=== PATIENT | female | born 1990 | race Hispanic/Latino ===

== ENCOUNTER 2018-11-01 19:18 | Emergency (ER) | payer OTHER ==
[2018-11-01 19:26] VITALS: O2SAT 100
--- NOTE | 2018-11-01 19:37 | ED PDOC ---
HPI:STROKE - Time Time: 19:36 - Historian Historian: Patient - Chief Complaint Chief Complaint: Facial droop - Onset Date: 11/01/18 Time: 10:00 Onset: Hours (9) - Timing Timing: Currently Symptomatic - Location Locate right:: Face - Severity of pain Maximum severity:: Mild Pain Scale:: 0 Severity Current: Mild Pain Scale:: 0 - TPA Positive for Contraindication: Yes Reason tPA is not being Administered: [place] Palsy - Notes: Notes:: Numbness right upper lip since 10 AM today. Drooling soup earlier today. No periphearl weakness or parasthesias. No headache or dizziness. NIHSS Stroke Scale - How Severe is the Stroke Level of Consciousness: 0=Alert LOC to Questions: 0=Both comments correct LOC to commands: 0=Obeys both correctly Best Gaze: 0=Normal Visual: 0=No visual loss Facial: 1=Minor asymmetry Motor Arm - Left: 0=No drift Motor Arm - Right: 0=No drift Motor Leg - Left: 0=No drift Motor Leg - Right: 0=No drift Limb Ataxia: 0=Absent Sensory: 0=Normal Best Language: 0=No aphasia Dysarthia: 0=Normal articulation Extinction & Inattention (Neglect): 0=Normal, no object Score: 1 rTPA Inclusion/Exclusion - Refusal of Treatment Patient Refused Treatment: No - Inclusion Criteria for Altepase Patient is 18 years or Older: Yes The Clinical Diagnosis of Ischemic Stroke That is Causing a Potentially Disabling Neurological Deficit: No Time of Onset is Well Established to be Less Than 270 Minute Before Treatment Would Begin: No Risk/Benefit Discussed With Patient/Family Member Present: No Past Medical History Vital Signs: Last Vital Signs Temp 97.6 F 11/01/18 19:22 Pulse 87 11/01/18 19:22 Resp 16 11/01/18 19:22 BP 134/87 11/01/18 19:22 Pulse Ox 100 11/01/18 19:22 - Medical History PMH: No Chronic Diseases - Family History Family History: States: Unknown Family Hx - Home Medications Home Medications: Ambulatory Orders Medication Instructions Recorded Prednisone 50 mg PO DAILY #5 tab 11/01/18 valACYclovir [Valtrex] 1 gm PO TID #30 tab 11/01/18 - Allergies Allergies/Adverse Reactions: Allergies Allergy/AdvReac Type Severity Reaction Status Date / Time No Known Allergies Allergy Verified 11/01/18 19:22 Review of Systems Neurological: Positive for: Other (Right upper lip numbness/weakness) Physical Exam - Physical Exam Appears: Positive for: Non-toxic, No Acute Distress Head Exam: Positive for: ATRAUMATIC, NORMAL INSPECTION, NORMOCEPHALIC Skin: Positive for: Normal Color, Warm, DRY Neck: Positive for: Normal, Painless ROM Cardiovascular/Chest: Positive for: Regular Rate, Rhythm Extremity: Positive for: Normal ROM Neurologic/Psych: Positive for: Alert, Oriented, Facial Droop (Right sided facial asymetry. No sensory deficits). Negative for: Motor/Sensory Deficits - ECG O2 Sat by Pulse Oximetry: 100 - Progress Re-evaluation Time: 20:34 Condition: Re-examined (No change in facial asymetry. No addl neuro findings. CT head nl) Disposition - Clinical Impression Clinical Impression: Bedoya's palsy - Patient ED Disposition Is Patient to be Admitted: No Counseled Patient/Family Regarding: Studies Performed, Diagnosis, Need For Followup, Rx Given - Disposition Referrals: Nate Almeida MD [Medical Doctor] - Disposition: Routine/Home Disposition Time: 20:35 Condition: FAIR Prescriptions: Prednisone 50 mg PO DAILY #5 tab valACYclovir [Valtrex] 1 gm PO TID #30 tab Instructions: Bedoya's Palsy Forms: [facility] (Algerian)
[2018-11-01 21:03] VITALS: BP 138/89; PULSE 76; RESP 18; TEMP 98.7
--- NOTE | 2018-11-02 10:48 | CT ---
Date of service: 11/01/2018 PROCEDURE: CT HEAD WITHOUT CONTRAST. HISTORY: r/o bleed COMPARISON: None available. TECHNIQUE: Axial computed tomography images were obtained through the head/brain without intravenous contrast. Radiation dose: Total exam DLP = 801.44 mGy-cm. This CT exam was performed using one or more of the following dose reduction techniques: Automated exposure control, adjustment of the mA and/or kV according to patient size, and/or use of iterative reconstruction technique. FINDINGS: HEMORRHAGE: No intracranial hemorrhage. BRAIN: No mass effect or edema. No atrophy or chronic microvascular ischemic changes. VENTRICLES: Unremarkable. No hydrocephalus. CALVARIUM: Unremarkable. PARANASAL SINUSES: Unremarkable as visualized. No significant inflammatory changes. MASTOID AIR CELLS: Unremarkable as visualized. No inflammatory changes. OTHER FINDINGS: None. IMPRESSION: Normal unenhanced CT of the Head. Concordant preliminary report from [facility], 11/01/2018 8:11 p.m..
== END 2018-11-01 21:10 | disposition home or self-care (01) ==
LOC: H.ER 19:18
DX: G51.0 Bell's palsy (principal)